=== PATIENT | female | born 1960 | race Caucasian/White ===

== ENCOUNTER → 2022-06-18 | Day surgery (SDC) | payer OTHER ==
--- NOTE | 2022-06-19 13:36 | USB ---
Risk Values: Mariza 5 year model risk: 2.7%. NCI Lifetime model risk: 13.2%. Findings: The procedure of ultrasound guided core biopsy was explained to the patient. Benefits, alternatives, and risks were discussed. An informed consent was then obtained. The patient was placed in supine positioning for imaging and for the procedure. Preprocedure ultrasound fails to demonstrate suspicious lesion at 1:00 position left breast at area of clinical concern on outside ultrasound. Because no suspicious lesion could be found biopsy was recommended to be canceled. Patient was agreeable to cancel biopsy and short-term follow-up. Impression: Canceled biopsy due to nonvisualized suspicious lesion. Management: Diagnostic Mammogram of the left breast in 6 months. Diagnostic Breast Ultrasound of the left breast in 6 months. Precautionary diagnostic left breast mammogram and ultrasound follow-up in 6 months time to reassess. Electronically signed and approved by: Julio Barrios M.D.
== END ==
LOC: RADUSWWP 12:55
PROVIDERS: ATTEND Family Medicine
DX: R92.8 Other abnormal and inconclusive findings on diagnostic imaging of breast (principal)